=== PATIENT | male | born 1960 | race Two or more races ===

== ENCOUNTER 2016-09-03 14:57 | Emergency (ER) | payer OTHER ==
[~2016-09-03] VITALS: Ht 165.1 cm; Wt 81.6 kg
[2016-09-03 15:11] VITALS: BP 156/103
[2016-09-03] MEDS ORDERED: BACITRACIN-POLYMYXIN B TOPICAL OINT UD TOP ONE ×3 (18:16→18:30)
[2016-09-03] MEDS ORDERED: TETANUS-DIPTH-ACEL PERTUSSIS 0.5ML SYRG IM ONE (18:30)
[2016-09-03] MEDS ORDERED: ceFAZolin IM 1GM/2.5ML STERILE WATER IM ONE (18:30)
[2016-09-03] MEDS ORDERED: LIDOCAINE 1% HCL (LOCAL ANESTH.) INJ 20ML MDV ONE (18:32)
[2016-09-03] MEDS ORDERED: cefTRIAXone SOD 1,000 MG VL ONE (18:32)
[2016-09-03] MEDS ORDERED: LIDOCAINE 1% HCL (LOCAL ANESTH.) INJ 20ML MDV IJ ONE (18:45)
[2016-09-03] MEDS ORDERED: cefTRIAXone SOD 1,000 MG VL IM ONE (18:45)
== END 2016-09-03 19:02 | disposition home or self-care (01) ==
LOC: ER 15:02
DX: S61.212A Laceration without foreign body of right middle finger without damage to nail, initial encounter (principal); S62.662A Nondisplaced fracture of distal phalanx of right middle finger, initial encounter for closed fracture; Z23 Encounter for immunization; S69.91XA Unspecified injury of right wrist, hand and finger(s), initial encounter; W27.8XXA Contact with other nonpowered hand tool, initial encounter; Y93.89 Activity, other specified; Y99.8 Other external cause status; Y92.89 Other specified places as the place of occurrence of the external cause
CPT/HCPCS: 12002; 73140; 90471; 90715; 96372; 99284; J0696; J2001; J0690